=== PATIENT | male | born 1985 | race Caucasian/White ===

== ENCOUNTER 2017-06-07 11:54 | Emergency (ER) | payer OTHER ==
[~2017-06-07] VITALS: Ht 175.3 cm; Wt 70.8 kg
[2017-06-07] MEDS ORDERED: ZANTAC 150MG T150 MG PO (12:02)
[2017-06-07] MEDS ORDERED: AFRIN15 ML NS (12:38)
[2017-06-07] MEDS ORDERED: CLEOCIN HCL150 MG PO (12:38)
[2017-06-07] MEDS ORDERED: TRAMADOL 50 MG50 MG PO (12:39)
[2017-06-07 12:53] VITALS: BP 118/67
== END 2017-06-07 12:54 | disposition home or self-care (01) ==
LOC: M.ERS 11:54
DX: S06.0X1A Concussion with loss of consciousness of 30 minutes or less, initial encounter (principal); J32.9 Chronic sinusitis, unspecified; W18.30XA Fall on same level, unspecified, initial encounter; Y93.89 Activity, other specified; Y92.89 Other specified places as the place of occurrence of the external cause; Y99.8 Other external cause status